=== PATIENT | male | born 1955 | race Caucasian/White ===

== ENCOUNTER 2017-11-16 11:15 | Emergency (ER) | payer OTHER ==
[2017-11-16] MEDS: ACETAMINOPHEN 500 MG TAB PO (14:12)
== END 2017-11-16 15:27 | disposition home or self-care (01) ==
LOC: FTE 11:15
DX: R51 Headache (principal); M54.5 Low back pain; I10 Essential (primary) hypertension; F17.210 Nicotine dependence, cigarettes, uncomplicated; Z85.46 Personal history of malignant neoplasm of prostate
CPT/HCPCS: 70450; 99284-25